=== PATIENT | female | born 1975 | race Hispanic/Latino ===

== ENCOUNTER 2021-06-26 13:33 | Emergency (ER) | payer SELFPAY ==
[~2021-06-26] VITALS: Ht 157.5 cm; Wt 62.0 kg
[~2021-06-26 13:33] MED LIST: NORCO1 TA1 PO
[2021-06-26] MEDS ORDERED: MONTELUKAST SOD10 MG PO (16:15)
[2021-06-26] MEDS ORDERED: SYMBICORT 80-4.5MCG IN (16:15)
[2021-06-26 16:52] LABS: HEMATOCRIT 41.7 % (37.0-47.0); HEMOGLOBIN 14.3 g/dl (12.0-16.0); IMMATURE GRANULOCYTES 0.2 % (0.0-5.0); MEAN CELL VOLUME 87.4 fL CALC (80.0-100.0); MEAN CORPUSCULAR HGB CONC 34.3 g/dL CAL (32.0-36.0); NEUT# 6.74 thou/uL (2.00-7.15); RED BLOOD COUNT 4.77 mill/uL (4.20-5.60); RED CELL DISTRI WIDTH 12.1 % (11.5-15.5)
[2021-06-26 16:53] LABS: URINE BILIRUBIN - DIPSTICK NEGATIVE (NEGATIVE); URINE BLOOD DIPSTICK NEGATIVE (NEGATIVE); URINE COLOR YELLOW; URINE GLUCOSE - DIPSTICK >=1000 mg/dL (NEGATIVE); URINE KETONE NEGATIVE (NEGATIVE); URINE LEUK ESTERASE NEGATIVE (NEGATIVE); URINE PH 5.5 (4.5-8.0); URINE PROTEIN - DIPSTICK NEGATIVE (NEG-TRACE); URINE SPECIFIC GRAVITY >=1.030; URINE UROBILINOGEN - DIPSTICK 0.2 E.U./dL (0.2)
[2021-06-26 16:54] LABS: URINE NITRITE - DIPSTICK NEGATIVE (Negative)
[2021-06-26 17:15] LABS: ALBUMIN 4.4 g/dL (3.2-5.0); ALKALINE PHOSPHATASE 100 u/l (38-126); ANION GAP 13 (6-22 (CALC)); BILIRUBIN, TOTAL 0.4 mg/dL (0.0-1.4); BUN 13 mg/dL (7-17); BUN/CREATININE RATIO 29 (12-20 (CALC)); CARBON DIOXIDE 26 mmol/l (22-30); CHLORIDE 97 mmol/l (95-108); CREATININE 0.5 mg/dL (0.5-1.0); GFR > 60 ML/MIN (>=60 (CALC)); GFR FOR AFR.AMER. > 60 ML/MIN (>=60 (CALC)); LIPASE 182 u/l (23-300); SGOT/AST 38 u/l (14-36); SODIUM 132 mmol/l (137-146); TOTAL PROTEIN 8.4 g/dL (6.3-8.2)
[2021-06-26] MEDS ORDERED: NAPROXEN500 MG PO (20:24)
[2021-06-26] MEDS ORDERED: METFORMIN HCL500 M1 PO (20:24)
[2021-06-26 20:36] VITALS: BP 116/66
== END 2021-06-26 20:36 | disposition home or self-care (01) | DRG 761 ==
LOC: ED 13:33
PROVIDERS: Family Medicine
DX: N83.202 Unspecified ovarian cyst, left side (principal); E11.9 Type 2 diabetes mellitus without complications; J45.909 Unspecified asthma, uncomplicated; Z79.84 Long term (current) use of oral hypoglycemic drugs
CPT/HCPCS: Q9967

== ENCOUNTER 2024-02-13 08:12 | Emergency (ER) | payer SELFPAY ==
[~2024-02-13] VITALS: Ht 157.5 cm; Wt 65.0 kg
[~2024-02-13 08:12] MED LIST changes: +METFORMIN HCL500 M1 PO; +MONTELUKAST SOD10 MG PO; +NAPROXEN500 MG PO; +SYMBICORT 80-4.5MCG IN
[2024-02-13 08:17] VITALS: BP 150/89
[2024-02-13 08:30] VITALS: BP 113/77
[2024-02-13 08:31] VITALS: BP 150/89
== END 2024-02-13 08:32 | disposition home or self-care (01) | DRG 156 ==
LOC: ED 08:12
DX: T16.2XXA Foreign body in left ear, initial encounter (principal); E11.9 Type 2 diabetes mellitus without complications; J45.909 Unspecified asthma, uncomplicated; E05.90 Thyrotoxicosis, unspecified without thyrotoxic crisis or storm; W44.9XXA Unspecified foreign body entering into or through a natural orifice, initial encounter